=== PATIENT | male | born 1935 | race Caucasian/White ===

== ENCOUNTER → 2017-06-29 | Outpatient (CLI) | payer MEDICARE ==
[~2017-06-29] MED LIST: ALLO100T PO; AMLO5 PO; AMLO5TAB96 PO; ASPI81TA81; ASPI81TA82 PO; ATOR40TA49 PO; B COTAB3 PO; CALTTAB5 PO; COMB0.2S LEFT EYE; DAPS5TAB PO; DORZ2SOL3 EACH EYE; DORZ2SOL7 LEFT EYE; ENAL10 PO; FISHOIL XX; FURO1TAB60 PO; FURO20 PO; ISOS60 PO; ISOS60TA PO; LATA.005%O LEFT EYE; LATA0.00 OP; LIPI40TA PO; METO25CR PO; METO50TA PO; MULTTAB67 PO; PLAV75TA PO; PLAV75TA29 PO; POTA10PO PO; TAB-TAB PO; VITA1000 PO; VITA500T83 PO; [UNRECOGNIZED DRUG - CODE] PO
--- NOTE | 2017-06-29 15:13 | RADRPT ---
EXAM DATE/TIME: 06/29/2017 12:42 [place] COMPARISON: No previous studies available for comparison. INDICATIONS : Fall 2 years ago, right side low back pain. MEDICAL HISTORY : None. SURGICAL HISTORY : None. ENCOUNTER: Initial ACUITY: >1 year PAIN SCORE: 2/10 LOCATION: Right Low back FINDINGS: Mild compression deformity is noted involving the L1 vertebral body of indeterminate age. Disc space narrowing is noted at L4-5 consistent with degenerative disc disease. There is no spondylolisthesis o r spondylolysis. Mild scoliosis and degenerative changes are noted involving the thoracolumbar spine CONCLUSION: Mild compression deformity involving L1 of indeterminate age. Degenerative disc disease at L4-5. Dege nerative changes and scoliosis of the thoracolumbar spine. Ta Cooper MD on June 29, 2017 at 15:09 Board Certified Radiologist. This report was verified electronically.
== END ==
LOC: HRAD 12:25
PROVIDERS: ATTEND Family Medicine
DX: M54.5 Low back pain (principal)
CPT/HCPCS: 72110

== ENCOUNTER 2017-07-04 07:44 | Day surgery (SDC) | payer MEDICARE ==
[~2017-07-04] VITALS: Ht 177.8 cm; Wt 76.0 kg
[~2017-07-04 07:44] MED LIST changes: -AMLO5 PO; -ASPI81TA81; -COMB0.2S LEFT EYE; -DAPS5TAB PO; -DORZ2SOL7 LEFT EYE; -FURO1TAB60 PO; -ISOS60TA PO; -LATA.005%O LEFT EYE; -LIPI40TA PO; -METO50TA PO; -MULTTAB67 PO; -PLAV75TA29 PO; -POTA10PO PO; -VITA1000 PO; -VITA500T83 PO
[2017-07-04] MEDS ORDERED: IOHEXOL 350 MG/ML 50 ML BTL (for Cath Lab) OTHER ONE (07:45)
[2017-07-04 08:48] VITALS: BP 190/87; PULSE 66; RESP 18; TEMP 98.1; O2SAT 96
[2017-07-04 08:56] LABS: AUTOMATED NEUTROPHIL # 4.6 TH/MM3 (1.8-7.7); BASOPHIL # 0.1 TH/MM3 (0-0.2); BASOPHIL % 0.7 % (0.0-2.0); EOSINOPHIL # 0.2 TH/MM3 (0-0.4); EOSINOPHIL % 2.7 % (0.0-4.0); HEMATOCRIT 41.8 % (39.0-51.0); HEMOGLOBIN 14.4 GM/DL (13.0-17.0); LYMPH % 30.1 % (9.0-44.0); LYMPHOCYTE # 2.4 TH/MM3 (1.0-4.8); MEAN CELL VOLUME 99.8 FL (80.0-100.0); MEAN CORPUSCULAR HEMOGLOBIN 34.4 PG (27.0-34.0); MEAN CORPUSCULAR HGB CONC 34.4 % (32.0-36.0); MEAN PLATELET VOLUME 8.8 FL (7.0-11.0); MONO % 8.3 % (0.0-8.0); MONOCYTE # 0.7 TH/MM3 (0-0.9); NEUT % 58.2 % (16.0-70.0); PLATELET COUNT 169 TH/MM3 (150-450); RED BLOOD COUNT 4.18 MIL/MM3 (4.50-5.90); RED CELL DISTRIBUTION WIDTH 13.8 % (11.6-17.2)
[2017-07-04] MEDS ORDERED: NS 1000P @30 MLS/HR (KVO) IV SCH (09:00)
[2017-07-04] MEDS ORDERED: ALLO100T PO (09:31)
[2017-07-04] MEDS ORDERED: ASPI81TA81 (09:31)
[2017-07-04] MEDS ORDERED: LATA.005%O LEFT EYE (09:31)
[2017-07-04] MEDS ORDERED: METO50TA PO (09:31)
[2017-07-04] MEDS ORDERED: LIPI40TA PO (09:31)
[2017-07-04] MEDS ORDERED: AMLO5 PO (09:31)
[2017-07-04] MEDS ORDERED: VITA500T83 PO (09:31)
[2017-07-04] MEDS ORDERED: PLAV75TA29 PO (09:31)
[2017-07-04] MEDS ORDERED: VITA1000 PO (09:31)
[2017-07-04] MEDS ORDERED: MULTTAB67 PO (09:31)
[2017-07-04] MEDS ORDERED: FURO1TAB60 PO (09:31)
[2017-07-04] MEDS ORDERED: DAPS5TAB PO (09:31)
[2017-07-04] MEDS ORDERED: DORZ2SOL7 LEFT EYE (09:31)
[2017-07-04] MEDS ORDERED: ISOS60TA PO (09:31)
[2017-07-04] MEDS ORDERED: COMB0.2S LEFT EYE (09:31)
[2017-07-04] MEDS ORDERED: POTA10PO PO (09:31)
[2017-07-04] MEDS ORDERED: HEPARIN-NS/PF FLUSH BAG 2,000 ML IV FLUSH ONE (09:33)
[2017-07-04 09:36] LABS: BICARBONATE 29.8 MEQ/L (21.0-32.0); CALCIUM 9.6 MG/DL (8.5-10.1); CREATININE 1.56 MG/DL (0.60-1.30)
[2017-07-04] MEDS ORDERED: LIDOCAINE HCL 1% PF 30 ML VIAL ONE (09:41)
[2017-07-04] MEDS ORDERED: MIDAZOLAM HCL 2 MG/2 ML VIAL ONE (09:45)
[2017-07-04] MEDS ORDERED: POTASSIUM CHLORIDE 20 MEQ PWD PACKET PO ONE (10:30)
--- NOTE | 2017-07-04 10:31 | CATHPROC ---
[facility] HIS Report Study Information Study Number Admission Scheduled Start Study Start [id number] Jul 04 2017 7:44AM 07/04/2017 Jul 04 2017 9:28AM [place] [facility] Cardiac Catheterization Admit Source Facility Department Other [facility] - Director Market Research Physician and Clinical Staff Initial Joce Mora Metabolic Specialistmorgan Bassett RN, Joseph Salvador RN Other Blaine Whitlock RN Recorder Leila Smallwood RCIS TECH2 Scrub Lisandro Siddiqi RCIS(BS) Procedures Performed Procedure Location (Site) Vessel Name Coronary Angiograms LCA Left Coronary Coronary Angiograms SVG-PDA Right Coronary Coronary Angiograms Gft. Stump 1 SVG Graft Coronary Angiograms Gft. Stump 2 SVG Graft Coronary Angiograms DHALIWAL DHALIWAL Equipment Time Sales Order Coordinator Description Size Mfg Part Number Used/Scraped TRANSDUCER, [place] [id number] 09:56 Kallik BERNARDO * Used W/STOCKCOCK *[id number] 10:09 [employer]ARD[employer] MEDICAL VASCADE, FR6 CLOSURE SYSTEM FR 6\7 Used *[id number] [id number] *[id number] [id number] *[id number] [id number] *[id number] 09:56 [employer] PACK, CCL CUSTOM * Used *[id number] 09:56 MiFi PACER PEN, SKIN DUAL W/ RULER * Used *[id number] 09:56 [employer] SHEATH, FR6.5 PRELUDE 11CM FR 6.5 038ACT Used *[id number] 09:56 [employer] MEDICAL WIRE, 3MMJ .035 180CM 180CM Used *[id number] 09:56 NAMIC MANIFOLD, 4 PORT * Used *[id number] 09:56 NYCOMED OMNIPAQUE, 350 MG, 150ML 150ML [id number] Used [id number] 09:56 [employer] MEDICAL BLANKET,WARM AIR CCL * Used *[id number] History: Current Medications Medication Dosage/Unit Route Frequency Last Date/Time Taken ASA PLAVIX NORVASC LIPITOR LOPRESSOR K-Dur Imdur Allopurinol VITAMIN D History: Allergies Allergy Reaction No Known Allergies History: Risk Factors Family History of Hypertension Dyslipidemia Previous DC Previous Heart Failure Premature CAD Yes Yes No No No Prior Valve Prior PCI Prior PCIDate Prior CABG Surgery No Yes 03/21/2015 Yes Cerebrovascular Peripheral Artery Chronic Lung On Dialysis Diabetes Disease Disease Disease No No No No No History: Stress Tests Stress or Imaging Studies Performed Yes Standard Exercise Stress Test No Stress Echo No Stress Test SPECT Stress Test SPECT Result Stress Test SPECT Ischemia Risk/Extent Yes Positive Intermediate Stress Test CMR No Cardiac CTA Coronary Calcium Score No No History: Other Disease Selection Items Cancer History: Other Current Smoker No Labs Hgb (g/dl) Hct (%) WBC (l/cumm) Platelets (thousands) 11.60-17.00 35.00-51.00 4.00-11.00 150.00-450.00 14.4 41.8 8 169 Glucose (mg/dl) BUN (mg/dl) Creatinine (mg/dl) BUN:Creatinine (1:x) 74.00-106.00 7.00-18.00 0.50-1.30 10.00-20.00 98 19 1.5 12.7 Na (meq/l) K (meq/l) 136.00-145.00 3.50-5.10 141 3.3 INR (PTT:PT) 0.90-1.10 1 CPK-MB (ng/ML) 0.50-3.60 Not Drawn Medication Medication Total Dose (Bolus/Oral) Medication Total Dosage/Unit 1% XYLOCAINE 20 mL VERSED 1 mg Medications (Bolus/Oral) Medication Time Given Dosage/Unit Administered By Reason 1% XYLOCAINE 07/04/2017 9:53:34 AM 20 mL Joce Orellana 20 mL 1% XYLOCAINE given in lab by Joce Orellana in Right Groin via Subcutaneous. VERSED 07/04/2017 9:53:50 AM 1 mg Joseph Santiago 1 mg VERSED given in lab by Joseph Santiago, RN in Left Antecubital via Peripheral IV. Ordered by Joce Orellana. Medication (Drip) Medication Time Given Dosage/Unit Concentration/Unit Diluent (ml) Solution IV Solutions 07/04/2017 9:34:28 AM 0 mL (IV) 500 NaCl .9 Patient arrived on IV Solutions in Left Antecubital via Peripheral IV. Pump/Drip Flow = 20 ml/hr usin g NaCl .9. Initial Case Assessment Cardiovascular HR Rhythm NIBP Chest Pain 55 afib 164/79 0 Edema Present Mild Circulatory - Right Pulses Dorsalis Pedis Femoral 1 2 Scale (0,1,2,3,4,d) Circulatory - Left Pulses Dorsalis Pedis Femoral 1 2 Scale (0,1,2,3,4,d) Neurological State Oriented to time-place- Alert Moves all extremities person Respiration - General Respiration Rate SpO2 (%) (B/min) 10 96 Chronological Log Time Study Chronological Log 9:29:52 Patient arrived via Bed. 9:29:53 Patient Name, D.O.B, / Armband Verified By R.N. 9:29:55 Consent signed by the physician and the patient and verified by the Director Market Research staff. 9:29:56 Pre-op and post- op instructions given; patient acknowledges understanding of instructions. 9:29:57 Verbal Stimulation=2 Physical Stimulation=2 Airway=2 Respiration=2 TOTAL=8. (0=absent, 1=li mited, 2=present) 9:29:58 Presedation assessment performed by Director Market Research RN. 9:30:00 Patient has been NPO for More than 6Hrs. 9:30:01 Skin Breakdown-none 9:30:03 Faviola Prominences Protected 9:34:10 A # 20 IV was noted in the Antecubital (left). Grade = patent 9:34:28 Patient arrived on IV Solutions in Left Antecubital via Peripheral IV. Pump/Drip Flow = 20 ml/hr using NaCl .9. Vitals capture started with the following parameters, Patient=Adult, Interval=5 min, Initial Pr txvfgv=124 mmHg, 9:35:54 Deflation Rate=5 mmHg, Cuff placed on Left Arm 9:37:03 History and physical on the chart or being dictated. Assessment: Initial Case, HR=55 BPM, Rhythm=afib, WZOA=408/79 mmhg, Chest Pain=0, Edema=Mild Right Pulses: Dainel Ped=1, Femoral=2 9:37:05 Left Pulses: Daniel Ped=1, Femoral=2 Neurological: State=Alert, Ox3, SANTIAGO Respiration: Resp=10 B/min, SpO2=96 % 9:37:21 HR=57 bpm, RKGQ=274/79 mmhg, SpO2=96.0 %, Resp=10 B/min 9:40:17 pageallegra 9:41:39 HR=61 bpm, SOGK=822/68 mmhg, SpO2=96.0 %, Resp=10 B/min 9:41:58 MD paged 9:42:30 MD responded 9:42:40 Reference ECG taken 9:46:38 HR=62 bpm, URTV=188/69 mmhg, SpO2=95.0 %, Resp=10 B/min 9:47:50 Right groin prepped with 2% chlorhexidine, and draped after a 3 min. waiting time. 9:47:56 Pressure channel 1 zeroed. 9:50:19 MD arrived. 9:51:35 HR=63 bpm, RQNL=846/69 mmhg, SpO2=96.0 %, Resp=13 B/min Time Out. Correct patient, correct procedure, correct physician, power injector not used/loaded with contrast with 9:53:05 surgical team present. Time Out Concurred by MD and individual staff in procedure. 9:53:32 Case Start 9:53:34 20 mL 1% XYLOCAINE given in lab by Joce Orellana in Right Groin via Subcutaneous. 9:53:50 1 mg VERSED given in lab by Joseph Santiago, RN in Left Antecubital via Peripheral IV. Ordered by Joce Orellana. 9:55:42 Access site was Right Femoral Artery. 9:55:52 A SHEATH, FR6.5 PRELUDE 11CM FR 6.5 was advanced into the Fem Art (right) using the Percutan eous technique. A JR 4.0 INFINITI CATHETER FR 6 was advanced over a wire. OMNIPAQUE, 350 MG, 150ML 150ML was us ed for 9:56:31 injections. 9:56:38 HR=64 bpm, GVKY=423/61 mmhg, SpO2=97.0 %, Resp=8 B/min Recorded Pressure: Ao, HR=64, Condition=Condition 1 9:57:52 (Aorta) Ao 155/53/94 9:59:21 The Gft. Stump 1 was injected and visualized at various angles. OMNIPAQUE, 350 MG, 150ML 150 ML used. 9:59:54 The Gft. Stump 2 was injected and visualized at various angles. OMNIPAQUE, 350 MG, 150ML 150 ML used. The DHALIWAL was injected and visualized at various angles. OMNIPAQUE, 350 MG, 150ML 150ML used. soria bselectively 10:00:11 injected 10:01:35 HR=60 bpm, OBVG=329/64 mmhg, SpO2=92.0 %, Resp=1 B/min After removing the current catheter a MPA-2 INFINITI CATHETER FR 6 was advanced over a WIRE, 3M MJ .035 180CM 10::46 180CM. 10:02:57 The SVG-PDA was injected and visualized at various angles. OMNIPAQUE, 350 MG, 150ML 150ML u sed. After removing the current catheter a JL 4.0 INFINITI CATHETER FR 6 was advanced over a WIRE, 3 MMJ .035 180CM 10:03:46 180CM. 10:05:51 The LCA was injected and visualized at various angles. OMNIPAQUE, 350 MG, 150ML 150ML used . 10:06:38 HR=53 bpm, ZRIZ=657/53 mmhg, SpO2=98 %, Resp=18 B/min 10:07:09 Catheter was removed 10:07:39 An injection in the Fem Art (right) was made through the SHEATH, FR6.5 PRELUDE 11CM FR 6.5. 10:08:22 Site prepped with betadine for closure device deployment. 10:08:51 VASCADE, FR6 CLOSURE SYSTEM FR 6\7 placement in the Fem Art (right) 10:09:46 Case End 10:11:33 HR=62 bpm, KWTI=616/71 mmhg, SpO2=96.0 %, Resp=14 B/min 10:16:36 KLNS=594/66 mmhg 10:19:51 Patient moved to bed 10:20:02 Patient transported to DOCU End Study - Contrast Media Used In Study Contrast Total Opened (mL) Total Used (mL) Total Wasted (mL) Omnipaque 40 40 0 End Study - Maximum Contrast Load Max Contrast Load (mL) 245.5 End Study - Radiation Exposure Fluoro Time (minutes) 4.5 End Study - Sheaths Sheaths Pulled By Sheath Hold Time (min) Joce Orellana 5 End Study - Patient Disposition Complications Transferred To Interventional Outcome No Telemetry Bed No attempt made
--- NOTE | 2017-07-04 10:38 | MA ---
cc: Joce Orellana MD DATE: 07/04/2017 INDICATIONS FOR PROCEDURE: This is an 82-year-old with history chest pain, positive stress test for ischemia, history of coronary artery disease and bypass surgery. PROCEDURE: Left heart catheterization angiogram, saphenous vein graft injection. Right femoral artery angiogram and DHALIWAL injection. Vascade closure of the puncture wound in the right femoral artery after taking the sheath out. CORONARY ANGIOGRAM: Left main coronary artery is medium size vessel with mild diffuse disease. Left anterior descending coronary artery completely occluded proximally. 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 Functionally occluded. Circumflex completely occluded. There is one OM has about 80% stenosis proximally giving collaterals to small obtuse marginal artery. The right coronary artery documented to be completely occluded before. One saphenous vein graft connected to the right coronary artery and posterior descending coronary artery. Multiple stents, they are all patent. There were collaterals to the left anterior descending coronary artery. No left ventriculogram was performed. The patient tolerated the procedure well. Medical management to continue. He was sent back to his room in stable condition. No complications. POSTOPERATIVE DIAGNOSIS: Severe multivessel coronary artery disease. Patent saphenous vein graft to right coronary artery, as mentioned in the text. Joce Orellana MD HEATH/TL , 10:15 AM , 10:37 AM
[2017-07-04] MEDS ORDERED: SODIUM CHLOR 0.9% 1000 ML INJ 300 ML IV ONE (11:00)
[2017-07-04] MEDS ORDERED: POTASSIUM CHLORIDE 25 MEQ EFFERVESCENT TAB PO ONE (11:00)
--- NOTE | 2017-07-04 17:25 | EKG ---
Date Performed: 07/04/2017 Time Performed: 08:48:26 PTAGE: 82 years EKG: Sinus rhythm with PVCs First degree AV block Left axis deviation RBBB with left anterior fascicular block Inferio r infarct - age undetermined Since the previous tracing, no significant change noted Abnormal ECG PREVIOUS TRACING : 06/08/11 @ 2133 DOCTOR: Eamon Lin Interpretating Date/Time 07/04/2017 17:24:21
== END 2017-07-04 14:33 | disposition home or self-care (01) ==
LOC: HDOC 07:44 → HDIC 07:45 → HDOC 14:33
PROVIDERS: ATTEND Internal Medicine Cardiovascular Disease
DX: I25.118 Atherosclerotic heart disease of native coronary artery with other forms of angina pectoris (principal); I25.5 Ischemic cardiomyopathy; E78.2 Mixed hyperlipidemia; Z95.1 Presence of aortocoronary bypass graft; Z92.3 Personal history of irradiation; Z01.818 Encounter for other preprocedural examination
CPT/HCPCS: 80048; 85025; 85610; 93005; 93454; 99152; C1760; C1893; G0269; J1644; J2250; Q9967